=== PATIENT | male | born 1950 | race Caucasian/White ===

== ENCOUNTER 2019-02-02 08:25 | Outpatient (CLI) | payer MEDICARE ==
[~2019-02-02 08:25] MED LIST: AMIO400T5 PO; ASPI-515; ASPI-650 PO; CLOP75TA52 PO; DOCU-131 PO; EZET10TA18 PO; FURO-93 PO; HYDR-3307 PO; METO-93 PO; METO25TA35 PO; POTA10TA6 PO; ROSU20TA2 PO
== END 2019-02-02 23:59 | disposition home or self-care (01) ==
LOC: CFH 08:25
PROVIDERS: ATTEND Internal Medicine Cardiovascular Disease
DX: I10 Essential (primary) hypertension (principal); I48.91 Unspecified atrial fibrillation
CPT/HCPCS: 78452; 93017; A9502